=== PATIENT | male | born 1995 | race African-American/Black ===

== ENCOUNTER 2017-07-13 16:22 | Emergency (ER) | payer SELFPAY ==
[~2017-07-13] VITALS: Ht 175.3 cm; Wt 79.4 kg
[~2017-07-13 16:22] MED LIST: AFRIN NASAL SPR30 ML NASAL; IBUPROFEN600 MG ORAL; NKM; TAMIFLU75 MG ORAL
[2017-07-13] MEDS ORDERED: IBUPROFEN600 MG ORAL (17:31)
--- NOTE | 2017-07-13 17:31 | Emergency Room Report ---
History of Present Illness General Chief Complaint: Back Pain-No Injury Source: Patient Present Illness HPI 22-year-old male presents to the emergency department complaining of right- sided upper back pain that he rates as 7/10 in severity x3 days. Patient states that pain initially was intermittent dull ache. he states that while he was at work strain large pot of rice, his pain is exacerbated to 7/10 and was sharp. he states twisting of the torso exacerbates his pain. Patient states he had cough this past week. Denies shortness of breath. Patient states he is [id number]. he denies trauma or fall. Patient denies nausea, vomiting , fevers, chills. Denies numbness tingling or loss of sensation or gross motor movements of the extremities, incontinence of bowel or bladder. Denies CP, Palpitations, LOC, AMS, dizziness, Changes in Vision, Sensation, paresthesias, or a sudden severe headache. Allergies: Coded Allergies: No Known Allergies (Unverified , 01/24/14) Patient History Past Medical History: see triage record Past Surgical History: none Pertinent Family History: none Immunizations: UTD Reviewed Nursing Documentation: PMH: Agreed, PSxH: Agreed Nursing Documentation-PMH Past Medical History: No Stated History Review of Systems All Other Systems: negative except mentioned in HPI Physical Exam Vital Signs Date Time Temp Pulse Resp B/P Pulse Ox O2 Delivery O2 Flow Rate FiO2 07/13/17 16:33 98.2 62 18 124/66 Room Air Sp02 EP Interpretation: reviewed, normal General Appearance: no apparent distress, alert, GCS 15, non-toxic Head: normocephalic, atraumatic Eyes: bilateral eye PERRL, bilateral eye normal inspection ENT: hearing grossly normal, normal voice Neck: full range of motion Respiratory: chest non-tender, lungs clear, normal breath sounds, speaking full sentences Cardiovascular #1: regular rate, rhythm Genitourinary: normal inspection, no CVA tenderness Musculoskeletal: back normal, gait/station normal, normal range of motion, tender - right thoractic paraspinal ttp, no midline ttp, no obvious deformities , no bruises , no erythema Neurologic: alert, oriented x3, responsive, motor strength/tone normal, sensory intact, cerebellar normal, speech normal Psychiatric: judgement/insight normal, memory normal, mood/affect normal Skin: normal color, no rash, warm/dry, well hydrated Medical Decision Making PA Attestation Dr. Martínez is my supervising Physician whom patient management has been discussed with. Diagnostic Impression: Primary Impression: Muscle strain of right upper back Qualified Codes: S29.012A - Strain of muscle and tendon of back wall of thorax , initial encounter ER Course 22-year-old male presents to the emergency department complaining of right- sided upper back pain that he rates as 7/10 in severity x3 days. Patient states that pain initially was intermittent dull ache. he states that while he was at work strain large pot of rice, his pain is exacerbated to 7/10 and was sharp. he states twisting of the torso exacerbates his pain. Patient states he had cough this past week. Denies shortness of breath. Patient states he is [id number]. She denies trauma or fall. Patient denies nausea, vomiting, fevers, chills. Denies numbness tingling or loss of sensation or gross motor movements of the extremities, incontinence of bowel or bladder. Denies CP, Palpitations, LOC, AMS, dizziness, Changes in Vision, Sensation, paresthesias, or a sudden severe headache. Ddx considered but are not limited to Fracture, dislocation, contusion, Sprain/ Strain/Spasm. Vital signs: are WNL, pt. is afebrile H&PE are most consistent with muscle strain 0f the upper right back. ORDERS: - X-ray not required at this time. dx is clinical ED INTERVENTIONS: none required at this time. d/w pt. conservative treatment, and to follow up with a primary care provider. pt given a list of primary care clinics for follow up. d/w pt. to return to the ED with worsening or new symptoms. DISCHARGE: At this time pt. is stable for d/c to home. Will provide printed patient care instructions, and any necessary prescriptions. Care plan and follow up instructions have been discussed with the patient prior to discharge. Last Vital Signs Date Time Temp Pulse Resp B/P Pulse Ox O2 Delivery O2 Flow Rate FiO2 07/13/17 16:33 98.2 62 18 124/66 Room Air Disposition: HOME, SELF-CARE Condition: Stable Scripts Ibuprofen* (MOTRIN*) 600 Mg Tablet 600 MG ORAL THREE TIMES A DAY, #30 TAB 0 Refills Prov: Pema Mccallum 07/13/17 Departure Forms: Return to Work Return to Work Date: Jul 16, 2017 Work Restrictions: No Heavy Lifting Other Restrictions: light duty, limited use of right arm x 1 week. Return to Full Activity: Jul 23, 2017 Patient Instructions: Muscle Strain Additional Instructions: Take medications as directed. Follow up with a Primary Care Provider in 3-5 days, even if your symptoms have resolved. --Please review list of primary care clinics, if you do not already have a primary care provider Return sooner to ED if new symptoms occur, or current symptoms become worse. - Please note that this Emergency Department Report was dictated using Sentrigoassistant manager of operations technology software, occasionally this can lead to erroneous entry secondary to interpretation by the dictation equipment. Pema Mccallum Jul 13, 2017 17:31
[2017-07-13 17:55] VITALS: BP 124/66
[2017-07-13 17:57] VITALS: BP 124/66
== END 2017-07-13 18:00 | disposition home or self-care (01) ==
LOC: EMR 17:27
DX: S29.012A Strain of muscle and tendon of back wall of thorax, initial encounter (principal); X50.9XXA Other and unspecified overexertion or strenuous movements or postures, initial encounter; Y93.9 Activity, unspecified; Y99.0 Civilian activity done for income or pay
CPT/HCPCS: 99283

== ENCOUNTER 2017-07-27 17:01 | Emergency (ER) | payer OTHER ==
[~2017-07-27] VITALS: Ht 175.3 cm; Wt 74.8 kg
[2017-07-27 17:03] VITALS: BP 129/75
[2017-07-27] MEDS ORDERED: Bacitracin Oint UD TOPIC ONE (17:30)
[2017-07-27] MEDS ORDERED: Lidocaine 1% MPF 10mg/ml 5ml INJ ONE (17:30)
--- NOTE | 2017-07-27 17:48 | Emergency Room Report ---
History of Present Illness General Chief Complaint: Laceration Source: Patient Present Illness HPI The patient is a 22-year-old male presenting for laceration to the left hand which occurred today. He states that he was using a box office manager which slipped and cut the left hand. He is right-hand dominant. He noticed pain and bleeding to the area. Pain is now a 5/10 dull ache and does not radiate. He denies any numbness or tingling. Pain worse with touch. He denies any other symptoms Allergies: Coded Allergies: No Known Allergies (Unverified , 01/24/14) Patient History Past Medical History: see triage record Pertinent Family History: none Immunizations: UTD Reviewed Nursing Documentation: PMH: Agreed, PSxH: Agreed Nursing Documentation-PMH Past Medical History: No Stated History Review of Systems All Other Systems: negative except mentioned in HPI Physical Exam Vital Signs Date Time Temp Pulse Resp B/P (MAP) Pulse Ox O2 Delivery O2 Flow Rate FiO2 07/27/17 17:03 98.1 73 16 129/75 98 Room Air Sp02 EP Interpretation: reviewed, normal General Appearance: no apparent distress, alert, GCS 15, non-toxic Head: normocephalic, atraumatic Eyes: bilateral eye normal inspection, bilateral eye PERRL ENT: hearing grossly normal, normal pharynx, no angioedema, normal voice Musculoskeletal: back normal, gait/station normal, normal range of motion Neurologic: alert, oriented x3, responsive, motor strength/tone normal, sensory intact, speech normal Psychiatric: judgement/insight normal, memory normal, mood/affect normal, no suicidal/homicidal ideation Skin: normal color, no rash, normal turgor, laceration - 4cm linear laceration to L hand proximal to 2nd MCPJ Lymphatic: no adenopathy Procedures Laceration/Wound Repair Laceration/Wound Repair : Consent: Verbal Wound Location: upper extremity Wound's Depth, Shape: superficial, linear Wound Length (cm): 4 Wound Explored: clean Irrigated w/ Saline (ccs): 100 Betadine Prep?: Yes Anesthesia: 1% Lidocaine Volume Anesthetic (ccs): 4 Wound Debrided: minimal Wound Repaired With: sutures Suture Size/Type: 5:0, nylon Number of Sutures: 5 Layer Closure?: No Sterile Dressing Applied?: Yes Splint Applied?: No Sling Applied?: No Patient Tolerated: Well Complications: None Medical Decision Making PA Attestation Dr. Nassar is my supervising physician. Patient management was discussed with my supervising physician Diagnostic Impression: Primary Impression: Laceration of hand Qualified Codes: S61.412A - Laceration without foreign body of left hand, initial encounter ER Course the patient is a 22-year-old male presenting for left hand laceration Ddx considered include but not limited to fracture, tendon/ligament injury, avulsion, nerve damage PE: 4 cm linear laceration proximal to the left second MCP joint. Full active range of motion. No active bleeding. Sensation is intact The wound was irrigated with normal saline and cleaned with betadine. A 27g needle was used to administer 4mL of lidocaine w.o epi for local anasthesia. 5 sutures were placed with 5-0 Nylon. The wound was well approximated and the patient tolerated the procedure well. The wound was then cleaned and bacitracin was applied. The patient is discharged home with prescription for Motrin and bacitracin. He is given suture instructions Last Vital Signs Date Time Temp Pulse Resp B/P (MAP) Pulse Ox O2 Delivery O2 Flow Rate FiO2 07/27/17 17:03 98.1 73 16 129/75 98 Room Air Status: improved Disposition: HOME, SELF-CARE Condition: Improved Scripts Bacitracin (Bacitracin) 28.4 Gm Oint...g. 1 APPLIC TOPIC THREE TIMES A DAY, #28 GM Prov: MARIO THURMAN P.AStefanie 07/27/17 Ibuprofen* (MOTRIN*) 600 Mg Tablet 600 MG ORAL Q8H Y for For Pain, #30 TAB 0 Refills Prov: MARIO THURMAN P.AStefanie 07/27/17 MARIO THURMAN P.[place] Jul 27, 2017 17:48
[2017-07-27] MEDS ORDERED: IBUPROFEN600 MG ORAL (17:54)
[2017-07-27] MEDS ORDERED: BACITRACIN15 GM TOPIC (17:54)
== END 2017-07-27 18:00 | disposition home or self-care (01) ==
LOC: EMR 17:59
DX: S61.412A Laceration without foreign body of left hand, initial encounter (principal); W27.5XXA Contact with paper-cutter, initial encounter; Y92.511 Restaurant or cafe as the place of occurrence of the external cause; Y99.0 Civilian activity done for income or pay
CPT/HCPCS: 64450; 99284

== ENCOUNTER 2017-08-08 17:10 | Emergency (ER) | payer OTHER ==
[~2017-08-08] VITALS: Ht 175.3 cm; Wt 79.4 kg
[~2017-08-08 17:10] MED LIST changes: +BACITRACIN15 GM TOPIC
[2017-08-08 17:25] VITALS: BP 119/76
[2017-08-08 17:36] VITALS: BP 119/76
--- NOTE | 2017-08-08 23:18 | Emergency Room Report ---
History of Present Illness General Chief Complaint: Wound Recheck/Suture Removal Source: Patient Present Illness [facility] The patient is a 22-year-old male presenting for suture removal of the left hand. he was seen in this emergency department for the sutures. he denies any complications or current complaints. He denies any pain. Allergies: Coded Allergies: No Known Allergies (Unverified , 01/24/14) Patient History Past Medical History: see triage record Pertinent Family History: none Reviewed Nursing Documentation: PMH: Agreed, PSxH: Agreed Nursing Documentation-PM Past Medical History: No Stated History Review of Systems All Other Systems: negative except mentioned in HPI Physical Exam Vital Signs Date Time Temp Pulse Resp B/P (MAP) Pulse Ox O2 Delivery O2 Flow Rate FiO2 08/08/17 17:13 97.9 62 19 119/76 97 Room Air Sp02 EP Interpretation: reviewed, normal General Appearance: no apparent distress, alert, GCS 15, non-toxic Head: normocephalic, atraumatic Eyes: bilateral eye normal inspection, bilateral eye PERRL ENT: hearing grossly normal, normal pharynx, no angioedema, normal voice Neck: full range of motion, supple/symm/no masses Musculoskeletal: back normal, gait/station normal, normal range of motion, non- tender Neurologic: alert, oriented x3, responsive, motor strength/tone normal, sensory intact, speech normal Skin: wd healing/no infection noted, other - Nylon sutures in place. No erythema. No bleeding Lymphatic: no adenopathy Medical Decision Making PA Attestation Dr. Adams is my supervising physician. Patient management was discussed with my supervising physician Diagnostic Impression: Primary Impression: Visit for suture removal ER Course The patient is a 22-year-old male presenting for suture removal of the left hand Differential diagnosis considered: Wound infection, nonhealing wound, cellulitis , abscess Left hand sutures in place. Full active range of motion of the wrist and fingers. No active bleeding. Wound is well approximated. Suture removal: all simple interrupted sutures were removed without complication. No bleeding or discharge. Wound is well approximated. No surrounding erythema. The patient will be discharged home and is given precautions to return Last Vital Signs Date Time Temp Pulse Resp B/P (MAP) Pulse Ox O2 Delivery O2 Flow Rate FiO2 08/08/17 17:36 97.9 68 19 119/76 97 Room Air Status: improved Disposition: HOME, SELF-CARE Condition: Improved Referrals: NOT CHOSEN IPA/MD,REFERRING (PCP) Patient Instructions: Wound Check Additional Instructions: I discussed my findings with the patient. All questions and concerns have been answered. Treatment and medication compliance have been addressed. I advised the patient that they need to follow up with PMD in 3-5 days. Return to ED if symptoms worsen, new symptoms arise, or if needed for any reason. Patient verbalized understanding of discharge instructions. MARIO THURMAN Aug 08, 2017 23:18
== END 2017-08-08 18:00 | disposition home or self-care (01) ==
LOC: EMR 17:40
DX: Z48.02 Encounter for removal of sutures (principal)
CPT/HCPCS: 99281

== ENCOUNTER 2018-07-13 14:11 | Emergency (ER) | payer BC, OTHER ==
[~2018-07-13] VITALS: Ht 172.7 cm; Wt 76.7 kg
[2018-07-13 14:35] VITALS: BP 127/84
[2018-07-13] MEDS ORDERED: Tetracaine 0.5% Opth 4ml Soln LEFT EYE ONE (14:45)
[2018-07-13] MEDS ORDERED: Fluorescein Strips LEFT EYE ONE (14:45)
--- NOTE | 2018-07-13 14:57 | Emergency Room Report ---
History of Present Illness General Chief Complaint: Chemical Exposure Source: Patient Present Illness HPI 23-year-old male patient presents ER complaining of left eye irritation status post exposure. Reports that he was cleaning his hat with some bleach when it splashed up into his left eye. Reports left eye irritation. Denies vision loss. Denies history of Wearing contacts. Reports continued irritation his left eye. Denies fever, chest pain, shortness of breath. Denies other acute symptoms.reports skin irritation. Allergies: Coded Allergies: No Known Allergies (Unverified , 01/24/14) Patient History Past Medical History: see triage record Reviewed Nursing Documentation: PMH: Agreed; PSxH: Agreed Nursing Documentation-PMH Past Medical History: No Stated History Review of Systems All Other Systems: negative except mentioned in HPI Physical Exam Vital Signs Date Time Temp Pulse Resp B/P (MAP) Pulse Ox O2 Delivery O2 Flow Rate FiO2 07/13/18 14:24 98.5 50 20 127/84 98 Room Air 98.4 Sp02 EP Interpretation: reviewed, normal General Appearance: well appearing, no apparent distress, alert, GCS 15, non- toxic Head: normocephalic, atraumatic Eyes: left eye Scleral Injection - mild; bilateral eye normal inspection, bilateral eye PERRL, bilateral eye EOMI ENT: hearing grossly normal, normal pharynx, no angioedema, normal voice, uvula midline, moist mucus membranes Neck: full range of motion Respiratory: lungs clear, normal breath sounds, no rhonchi, no respiratory distress, no accessory muscle use, no wheezing, speaking full sentences Cardiovascular #1: regular rate, rhythm, no edema Musculoskeletal: back normal, digits/nails normal, gait/station normal, normal range of motion, non-tender Neurologic: alert, oriented x3, responsive, motor strength/tone normal, sensory intact Psychiatric: mood/affect normal Skin: no rash Medical Decision Making PA Attestation Dr. Nassar is my supervising Physician whom patient management has been discussed with. Diagnostic Impression: Primary Impression: Chemical exposure of eye ER Course Pt. presents to the ED c/o eye chemical irritation. Ddx considered but are not limited to chemical conjunctivitis, corneal abrasion , keratitis, cellulitis. Vital signs: are WNL, pt. is afebrile see nurses chart for visual acuity, reports 20-20. ER COURSE: no signs of skin irritation of upper or lower eyelid, no swelling or erythema. Mild conjunctival injection noted, eye irrigated with copious amounts of normal saline until patient states no longer feeling irritation in the eye. Fluoresceins stain shows no uptake, negative Karen sign, no abrasion or ulcer. provided with contact information for engraver copperplate, follow-up 24-48 hours, call to schedule appointment. Provided with eyedrops. ER precautions given. DISCHARGE: Rx provided for Opcon-A At this time pt is stable for d/c to home. Patient is resting comfortably, in no acute distress, nontoxic appearing, talking without difficulty. Patient to take medications as instructed Will provide with patient care instructions and any necessary prescriptions. Care plan and follow-up instructions provided. Patient instructed to follow-up with primary care provider in 1-3 days. Patient questions asked and answered. Patient reports understanding and agreement to treatment plan. ER precautions given. Patient instructed to return to ER immediately for any new or worsening of symptoms including but not limited to increasing SOB, persistent fever, chest pain, intractable vomiting. - Please note that this Emergency Department Report was dictated using Videoflotschedule clerk technology software, occasionally this can lead to erroneous entry secondary to interpretation by the dictation equipment. Last Vital Signs Date Time Temp Pulse Resp B/P (MAP) Pulse Ox O2 Delivery O2 Flow Rate FiO2 07/13/18 14:35 98.4 20 127/84 98 Room Air 98.4 07/13/18 14:35 50 Disposition: HOME, SELF-CARE Condition: Stable Scripts Naphazoline Hcl/Pheniramine (OPCON-A EYE DROPS) 15 Ml Drops 2 DROP OP DAILY, #15 ML Prov: Vishnu Alvarez 07/13/18 Patient Instructions: Chemical Conjunctivitis, [id number] Additional Instructions: Follow-up with plastic eye technician in 24 hours. Call to schedule appointment. Followup with primary care provider in 3 -5 days. Take medications as directed. Patient questions asked and answered. ER precautions given, patient instructed to return to ER immediately for any new or worsening of symptoms. Vishnu Alvarez Jul 13, 2018 14:57
[2018-07-13] MEDS ORDERED: OPCON-A EYE DRO15 ML OP (15:42)
[2018-07-13 15:53] VITALS: BP 135/89
== END 2018-07-13 16:00 | disposition home or self-care (01) ==
LOC: EMR 15:58
DX: Z77.098 Contact with and (suspected) exposure to other hazardous, chiefly nonmedicinal, chemicals (principal)
CPT/HCPCS: 99283

== ENCOUNTER 2019-01-19 09:53 | Emergency (ER) | payer SELFPAY ==
[~2019-01-19] VITALS: Ht 172.7 cm; Wt 74.8 kg
[~2019-01-19 09:53] MED LIST changes: +OPCON-A EYE DRO15 ML OP
[2019-01-19 10:00] VITALS: BP 108/66
--- NOTE | 2019-01-19 11:15 | Emergency Room Report ---
History of Present Illness General Chief Complaint: Flu Like Symptoms Source: Patient Present Illness HPI 23-year-old male with no medical problems presents with 2-3 history of myalgias , CO2 fever, cough with no sputum production, and occasional loose stools, denies recent antibiotic use, syncope, severe headache, any other symptoms. Allergies: Coded Allergies: No Known Allergies (Unverified , 01/24/14) Patient History Past Medical History: see triage record Reviewed Nursing Documentation: PMH: Agreed; PSxH: Agreed Nursing Documentation-PMH Past Medical History: No Stated History Review of Systems All Other Systems: negative except mentioned in HPI Physical Exam Vital Signs Date Time Temp Pulse Resp B/P (MAP) Pulse Ox O2 Delivery O2 Flow Rate FiO2 01/19/19 10:00 97.9 16 108/66 98 Room Air 01/19/19 10:00 74 Sp02 EP Interpretation: reviewed, normal General Appearance: no apparent distress, alert, non-toxic Head: normocephalic Eyes: bilateral eye normal inspection, bilateral eye PERRL, bilateral eye EOMI ENT: normal ENT inspection, hearing grossly normal, normal pharynx, no angioedema, normal voice, moist mucus membranes Neck: normal inspection, full range of motion, supple, supple/symm/no masses Respiratory: chest non-tender, lungs clear, normal breath sounds, chest symmetrical, palpation of chest normal Cardiovascular #1: normal peripheral pulses, regular rate, rhythm Cardiovascular #2: 2+ radial (R), 2+ radial (L) Gastrointestinal: normal inspection, non tender, soft, no mass, no guarding, no rebound Rectal: deferred Genitourinary: normal inspection, no CVA tenderness Musculoskeletal: back normal, gait/station normal, normal range of motion, non- tender, no calf tenderness Neurologic: alert, responsive, software design engineer III-XII nml as tested, motor strength/tone normal, sensory intact, speech normal Psychiatric: judgement/insight normal, memory normal, mood/affect normal, no suicidal/homicidal ideation Skin: normal color, no rash, warm/dry, normal turgor Lymphatic: no adenopathy Medical Decision Making Diagnostic Impression: Primary Impression: Influenza-like symptoms ER Course Patient with seasonal influenza, given Tamiflu, Motrin, follow-up with PMD Last Vital Signs Date Time Temp Pulse Resp B/P (MAP) Pulse Ox O2 Delivery O2 Flow Rate FiO2 01/19/19 10:04 74 16 Room Air 01/19/19 10:00 97.9 108/66 98 Disposition: HOME, SELF-CARE Condition: Stable Referrals: NON PHYSICIAN (PCP) JAMIA METCALF M.D Jan 19, 2019 11:15
[2019-01-19] MEDS ORDERED: IBUPROFEN600 MG ORAL (11:16)
[2019-01-19] MEDS ORDERED: TAMIFLU75 MG ORAL (11:16)
[2019-01-19 11:30] VITALS: BP 112/70
--- NOTE | 2019-01-19 11:30 | NUR ---
ER DISCHARGE NOTE: Patient is cleared to be discharged per ERMD, pt is aox4, on room air, with stable vital signs. pt was given dc and prescription instructions, pt was able to verbalize understanding, pt id band removed pt is able to ambulate with steady gait. pt took all belongings.
== END 2019-01-19 11:30 | disposition home or self-care (01) ==
LOC: EMR 10:30
DX: J11.1 Influenza due to unidentified influenza virus with other respiratory manifestations (principal)
CPT/HCPCS: 99282